=== PATIENT | female | born 1980 | race Caucasian/White ===

== ENCOUNTER 2017-08-12 18:30 | Emergency (ER) | payer BC, OTHER ==
[2017-08-12] MEDS ORDERED: ACETAMINOPHEN 325 MG TABLET PO ONE (19:59)
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
[2017-08-12 22:38] VITALS: BP 116/82
== END 2017-08-12 22:45 | disposition home or self-care (01) ==
LOC: ER 18:30
DX: S09.90XA Unspecified injury of head, initial encounter (principal); S09.93XA Unspecified injury of face, initial encounter; M79.642 Pain in left hand; M79.641 Pain in right hand; F17.200 Nicotine dependence, unspecified, uncomplicated; Y08.89XA Assault by other specified means, initial encounter; Z88.6 Allergy status to analgesic agent; Z88.0 Allergy status to penicillin
CPT/HCPCS: 70450; 70486; 99284